=== PATIENT | male | born 1975 | race Caucasian/White ===

== ENCOUNTER 2023-03-07 19:41 | Emergency (ER) | payer SELFPAY ==
[~2023-03-07] VITALS: Ht 180.3 cm; Wt 97.5 kg
[2023-03-07 19:43] VITALS: BP 100/65
[2023-03-07] MEDS ORDERED: NARCAN4 M1 (21:55)
== END 2023-03-07 22:01 | disposition home or self-care (01) ==
LOC: ER 19:41
DX: T40.411A Poisoning by fentanyl or fentanyl analogs, accidental (unintentional), initial encounter (principal)
CPT/HCPCS: 99284